=== PATIENT | male | born 1965 | race Caucasian/White ===

== ENCOUNTER 2016-05-28 11:45 | Emergency (ER) | payer MEDICARE, MEDICAID ==
--- NOTE | 2016-05-28 13:16 | RAD ---
INDICATION: Pain and tingling in the right upper extremity. COMPARISON: There are no prior studies available for comparison. TECHNIQUE: Contiguous axial sections were obtained from the skull base through the T2 vertebra. Images were reconstructed in the sagittal and coronal planes. FINDINGS: There is straightening of the cervical spine with loss of the normal cervical lordosis. No prevertebral soft tissue swelling or fracture is seen. There is a small nonspecific lucent area present in the posterior aspect of the C4 vertebral body measuring 4 mm in size. At the C2-C3 level there is posterior uncinate process spurring associated with a mild broad-based disc bulge. There are moderate hypertrophic changes within the facet joint on the right side. No significant spinal canal narrowing is present. There is moderate neural foraminal narrowing on the right side. At the C3-C4 level there is mild posterior uncinate process spurring. No spinal canal narrowing is present. There is mild bilateral neural foraminal narrowing. At the C4-C5 level there is [id number] posterior uncinate process spurring. This appears to be associated with a broad-based disc herniation which is not well defined on this study although appears to cause significant spinal canal narrowing and spinal cord compression. There is mild to moderate bilateral neural foraminal narrowing. At the C5-C6 level there is posterior uncinate process spurring which causes mild spinal canal narrowing. There is moderate to severe neural foraminal narrowing on the right side and mild neural foraminal narrowing on the left side. At the C6-C7 level there is mild to moderate posterior uncinate process spurring which causes mild spinal canal narrowing. There is moderate to severe bilateral neural foraminal narrowing. IMPRESSION: 1. STRAIGHTENING OF THE CERVICAL SPINE. 2. MODERATE TO SEVERE CERVICAL SPONDYLOSIS WITH CHANGES MOST PROMINENT AT THE C4-C5 LEVEL. AT THAT LEVEL THERE APPEARS TO BE A BROAD-BASED DISC HERNIATION CAUSING SIGNIFICANT SPINAL CANAL NARROWING AND SPINAL CORD COMPRESSION. THIS IS NOT WELL-DEFINED ON THE CT STUDY. RECOMMEND AN MRI OF THE CERVICAL SPINE FOR FURTHER EVALUATION. 3. THERE IS NEURAL FORAMINAL NARROWING AND MILD SPINAL CANAL NARROWING AT MULTIPLE LEVELS. 4. SMALL LUCENT LESION IN THE C4 VERTEBRAL BODY THIS CAN ALSO BE EVALUATED ON THE PATIENT'S FOLLOW-UP MRI STUDY.
[2016-05-28 15:19] VITALS: BP 150/97
== END 2016-05-28 15:05 | disposition home or self-care (01) ==
LOC: ED 11:45
DX: M47.9 Spondylosis, unspecified (principal)
CPT/HCPCS: 72125; 99282